=== PATIENT | female | born 2000 | race Hispanic/Latino ===

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

== ENCOUNTER 2023-05-01 21:16 | Emergency (ER) | payer MEDICAID, OTHER ==
[~2023-05-01] VITALS: Ht 154.9 cm; Wt 73.0 kg
[2023-05-01 22:27] LABS: APPEARANCE,URINE CLOUDY (CLEAR); BILIRUBIN,URINE NEGATIVE (NEGATIVE); COLOR,URINE DARK-ORANGE (YELLOW); GLUCOSE, URINE (UA) NEGATIVE (NEGATIVE); KETONES,URINE NEGATIVE (NEGATIVE); LEUKOCYTE ESTERASE ,URINE 250 Leu/uL (NEGATIVE); NITRATE,URINE 1+ (NEGATIVE); PROTEIN,URINE NEGATIVE (NEGATIVE)
[2023-05-01 22:34] LABS: ADD UA MICROSCOPIC YES
[2023-05-01 22:47] LABS: MUCUS,URINE RARE LPF (None Seen); RBC,URINE 0-1 /HPF (0-1); SQUAMOUS EPITHELIAL CELL,UR RARE /HPF (0-2); WBC,URINE 51-100 /HPF (0-1)
[2023-05-01] MEDS ORDERED: CEPH500T PO (23:57)
[2023-05-02 00:18] VITALS: BP 121/70; PULSE 63; RESP 17; O2SAT 98
== END 2023-05-02 00:19 | disposition home or self-care (01) ==
LOC: EDH 21:16
DX: N39.0 Urinary tract infection, site not specified (principal)
CPT/HCPCS: 81001; 81025; 87088

== ENCOUNTER 2023-10-27 21:22 | Emergency (ER) | payer OTHER ==
[~2023-10-27] VITALS: Ht 157.5 cm; Wt 70.3 kg
[~2023-10-27 21:22] MED LIST: CEPH500T PO
[2023-10-27 21:39] LABS: BASOPHILS # (AUTO) 0.03 K/uL (0.00-0.20); BASOPHILS % (AUTO) 0.2 % (0.0-5.0); EOSINOPHILS # (AUTO) 0.21 K/uL (0.00-0.70); EOSINOPHILS % (AUTO) 1.5 % (0.0-8.0); HEMATOCRIT 39.4 % (36-48); IMMATURE GRANULOCYTE ABSOLUTE 0.05 K/uL (0-1); LYMPHOCYTES # (AUTO) 1.6 K/uL (1.0-4.8); LYMPHOCYTES % (AUTO) 11.4 % (21.0-51.0); MEAN CORPUSCULAR HEMOGLOBIN 30.3 pg (27.0-33.0); MEAN CORPUSCULAR HGB CONC 33.5 g/dL (32.0-36.0); MEAN CORPUSCULAR VOLUME 90.6 fL (80-100); MONOCYTES # (AUTO) 0.7 K/uL (0.1-1.0); MONOCYTES % (AUTO) 4.5 % (3.0-13.0); NEUTROPHILS # (AUTO) 11.8 K/uL (1.8-7.7); NEUTROPHILS % (AUTO) 82.1 % (40.0-77.0); PLATELET COUNT (AUTO) 447 K/uL (130-400); RED BLOOD CELL COUNT(AUTO) 4.35 MIL/uL (4.00-5.50); RED CELL DISTRIBUTION WIDTH 13.4 % (11.0-15.5); WHITE BLOOD COUNT (AUTO) 14.4 K/uL (4.8-10.8)
[2023-10-27 21:53] LABS: CREATININE 0.7 mg/dL (0.5-1.0); POTASSIUM 3.5 mmol/L (3.5-5.1)
[2023-10-27 21:58] LABS: ALBUMIN 3.8 g/dL (3.5-5.0); BILIRUBIN,TOTAL 0.8 mg/dL (0.2-1.0); TOTAL PROTEIN, SERUM 7.7 g/dL (6.0-8.3)
[2023-10-28] MEDS: ONDANSETRON 4MG INJ IVP ONE (00:49)
[2023-10-28] MEDS: 0.9%NACL 1000ML 1,000 ML IV ONE (00:49)
[2023-10-28] MEDS: FAMOTIDINE 20MG VIAL IV ONE (00:49)
[2023-10-28 01:00] LABS: APPEARANCE,URINE CLEAR (CLEAR); BILIRUBIN,URINE NEGATIVE (NEGATIVE); COLOR,URINE YELLOW (YELLOW); GLUCOSE, URINE (UA) NEGATIVE (NEGATIVE); KETONES,URINE 5 mg/dL (NEGATIVE); LEUKOCYTE ESTERASE ,URINE 75 Leu/uL (NEGATIVE); NITRATE,URINE NEGATIVE (NEGATIVE); OCCULT BLOOD,URINE LARGE (NEGATIVE); PROTEIN,URINE 20 mg/dL (NEGATIVE); UROBILINOGEN,URINE 0.2 mg/dL (0.2-1.0)
[2023-10-28 01:01] LABS: ADD UA MICROSCOPIC YES
[2023-10-28 01:06] LABS: BACTERIA,URINE FEW /HPF (None Seen); MUCUS,URINE FEW LPF (None Seen); RBC,URINE TNTC /HPF (0-1); SQUAMOUS EPITHELIAL CELL,UR FEW /HPF (0-2)
[2023-10-28 01:22] LABS: RAPID GROUP A STREP negative (NEGATIVE)
[2023-10-28 01:27] LABS: SARS-CoV-2, RNA, NAAT NEGATIVE SARS CoV-2 (NEGATIVE)
[2023-10-28 01:32] LABS: INFLUENZA TYPE A Negative For Type A (NEGATIVE); INFLUENZA TYPE B Negative For Type B (NEGATIVE)
[2023-10-28] MEDS ORDERED: MACR100 PO (01:49)
[2023-10-28] MEDS ORDERED: ONDA-243 PO (01:49)
[2023-10-28 01:54] VITALS: BP 115/78; PULSE 70; RESP 20; O2SAT 100
[2023-10-28] MEDS: CEFTRIAXONE 1G VIAL IVPB ONE (01:56)
== END 2023-10-28 02:00 | disposition home or self-care (01) ==
LOC: EDH 21:22
DX: N39.0 Urinary tract infection, site not specified (principal); Z20.822 Contact with and (suspected) exposure to COVID-19
CPT/HCPCS: 99284; 87635; 80053; 84703; 83690; 85025; 87086; 87880; 87804 ×2; 81001; 36415; 96374; 96375; J3490; J0696; J2405

== ENCOUNTER 2024-05-01 17:40 | Emergency (ER) | payer SELFPAY ==
[~2024-05-01] VITALS: Ht 154.9 cm; Wt 68.0 kg
[~2024-05-01 17:40] MED LIST changes: +MACR100 PO; +ONDA-243 PO
[2024-05-01 18:44] LABS: SARS-CoV-2, RNA, NAAT NEGATIVE SARS CoV-2 (NEGATIVE)
[2024-05-01 18:52] LABS: INFLUENZA TYPE B Negative For Type B (NEGATIVE)
[2024-05-01 19:21] LABS: INFLUENZA TYPE A Positive For Type A (NEGATIVE)
[2024-05-01] MEDS ORDERED: OSEL75 PO (19:24)
--- NOTE | 2024-05-01 19:25 | ERN ---
General Chief Complaint: Flu Symptoms Stated Complaint: HEADACHE,EARACHE,DIZZYNESS Time Seen by MD: 19:18 Time Seen by Midlevel: 19:18 Source: patient History of Present Illness Initial Comments Patient is a 24-year-old female with no significant past medical history presenting to the emergency department with flu-like symptoms that has been ongoing for the last couple of days but worsened today. Symptoms consist of a generalized headache, bilateral ear pain, nasal congestion, and cough. Patient states her 5-year-old kid is sick with similar symptoms and is currently being treated for pneumonia. Denies any other symptoms at this time. Allergies: Coded Allergies: No Known Drug Allergies (Unverified Allergy, Unknown, 12/22/18) Home Meds Active Scripts Amoxicillin/Potassium Clav (Augmentin Xr 1,000-62.5 Tab) 1,000 Mg-62.5 Mg Tab.er.12h, 1 TAB PO TID for 7 Days, #21 TAB 0 Refills with food Prov:WENDY HARDEN 05/01/24 Oseltamivir Phosphate (Tamiflu) 75 Mg Cap, 1 CAP PO BID for 5 Days, #10 CAP 0 Refills Prov:WENDY HARDEN 05/01/24 Ondansetron (Ondansetron Odt) 4 Mg Tab.rapdis, 4 MG PO BID for 7 Days, #14 TAB Prov:WENDY HARDEN 10/28/23 Nitrofurantoin/Nitrofuran Mac (Macrobid) 100 Mg Cap, 100 MG PO BID for 5 Days, #10 CAP Prov:WENDY HARDEN 10/28/23 Cephalexin (Cephalexin) 500 Mg Tablet, 500 MG PO BID for acute uti for 7 Days, #14 TAB Prov:JACKIE BROWN 05/01/23 Past Medical History Past Medical History: No Pertinent History Past Surgical History: Female( History) History: Not Applicable ROS Dictation CONSTITUTIONAL: Negative except for HPI HEAD/FACE: Negative except for HPI EENT: Negative except for HPI RESPIRATORY: Negative except for HPI GASTROINTESTINAL/ABDOMINAL: Negative except for HPI GENITOURINARY: Negative except for HPI MUSCULOSKELETAL: Negative except for HPI INTEGUMENTARY: Negative except for HPI NEUROLOGICAL/PSYCH: Negative except for HPI HEMATOLOGIC/LYMPHATIC: Negative except for HPI All Systems Negative, Except as noted above. 13 point review of systems assessed and all negative except for above. Physical Exam Physical Exam Dictation Vital Signs reviewed General Appearance: Alert, oriented x 3, no acute distress, well developed, nourished. Head and Face: non-traumatic. Eyes: PERRL, pink conjunctivas, eyelid no trauma, anterior chamber with arcus senilis. Ears: Pinnas intact and no signs of trauma or erythema ear canals clear and no discharge TM no erythema Nose: No discharge, no bleeding. Oropharynx: Mouth normal, tongue pink, pharynx clear,no erythema, tonsils no exudates, no abscesses noted, mucous membrane moist Neck: Supple, non-tender, no thyromegaly, no masses, no JVD, no bruits Breast:Deferred Chest:No tenderness, no crepitus, no paradoxical movement, no retractions Lungs wheezing to bilateral lung avalos,, no rhonchi, no stridor, symmetrical breath sounds bilaterally Heart: Regular rate, regular rhythm, no murmur, no gallops Vascular: no peripheral edema, Abdomen: Soft, positive bowel sounds, nondistended, no guarding, nontender, no rebound, no masses no hepatomegaly, no splenomegaly, no Whitfield's sign, no hernias. Rectal: Deferred Genital: Deferred Neurological: Normal speech, motor function intact, sensory function intact Musculoskeletal: Neck nontender, full range of motion, back nontender, full range of motion, Extremities: nontender, full range of motion Skin: Color pink, dry, no turgor, no rash, no lacerations, no abrasions, no contusions. Lymphatic: Deferred Results Laboratory and Microbiology Lab and Micro Result Laboratory Tests Test 05/01/24 18:20 Influenza Type A Antigen Positive For Type A Influenza Type B Antigen Negative For Type B SARS-CoV-2, RNA, NAAT NEGATIVE SARS CoV-2 Labs Reviewed?: Yes MDM MDM: Differential diagnosis: Viral illness, upper respiratory infection, pneumonia There are no social concerns with this patient. Prescription drug management Prescriptions will include: Augmentin, Tamiflu Medical management and examination interpretation discussions were had by me with other qualified healthcare professionals as indicated for the patient's care. ED Course Orders Procedure Category Date Status Time Influenza Type A & B, LAB 05/01/24 Complete Rapid 18:19 Covid Rna Naat LAB 05/01/24 Complete 18:19 Chest 1vw RAD 05/01/24 Taken 18:19 Methylprednisolone PHA 05/01/24 Complete Succ 125mg (Solu-Medr 18:19 Ipratropium/Albuterol PHA 05/01/24 Complete Neb (Duoneb) 18:19 Ceftriaxone 1g Vial PHA 05/01/24 Complete (Rocephine 1g Inj) 20:00 Current Medications Medications (Trade) Dose Ordered Sig/Stephen Route PRN Reason Start Time Stop Time Status Last Admin Dose Admin Albuterol (DUOneb) 1 UDVIAL ONCE STAT IH 05/01/24 18:19 05/01/24 18:20 DC Ceftriaxone Sodium (ROCEphine 1G INJ) 1 gm ONCE ONCE IVPB 05/01/24 20:00 05/01/24 20:01 DC Methylprednisolone Sodium Succinate (Solu-medROL 125MG) 125 mg ONCE STAT IVP 05/01/24 18:19 05/01/24 18:20 DC Vital Signs Date Time Temp Pulse Resp B/P (MAP) Pulse Ox O2 Delivery O2 Flow Rate FiO2 05/01/24 18:16 99.3 88 18 135/84 97 Room Air 0 DX & DISP Disposition: Discharge Departure Impression: Primary Impression: Influenza A Additional Impression: Community acquired pneumonia Condition: Stable Scripts Methylprednisolone (Medrol) 4 Mg Tab.ds.pk 1 TAB PO AD for 6 Days, #21 TAB 0 Refills 6 on day 1 then reduce by one tablet daily until gone Prov: WENDY HARDEN 05/01/24 Amoxicillin/Potassium Clav (Augmentin Xr 1,000-62.5 Tab) 1,000 Mg-62.5 Mg Tab.er.12h 1 TAB PO TID for 7 Days, #21 TAB 0 Refills with food Prov: WENDY HARDEN 05/01/24 Oseltamivir Phosphate (Tamiflu) 75 Mg Cap 1 CAP PO BID for 5 Days, #10 CAP 0 Refills Prov: WENDY HRADEN 05/01/24 Additional Instructions: You have tested positive for influenza A. I have given you a prescription for Tamiflu which should help improve your symptoms over the next couple of days. Follow up with the primary care doctor in 2-3 days for repeat evaluation. Return to the ER if you develop any new or worsening symptoms. Referrals: SELF,REFERRAL (PCP) I have reviewed the case, and I agree with, Diagnosis and Plan I performed the substantive portion of the visit. I have reviewed and personally made and approve the management plan that is documented in the note by myself or the LIZZY. I acknowledge for responsibility for the patient's management plan. WENDY HARDEN May 01, 2024 19:25
[2024-05-01] MEDS ORDERED: AMOX-427 PO (19:51)
--- NOTE | 2024-05-01 20:30 | NUR ---
DISCHARGE DELAYED DUE TO MULTIPLE MEDICATIONS ORDERED AND PENDING
[2024-05-01] MEDS ORDERED: METH4TAB3 PO (20:32)
[2024-05-01 20:36] VITALS: PULSE 72; RESP 20
[2024-05-01] MEDS: IpraTROPium/alBUTERol SULFATE 3 ML SOLUTION IH STA (20:36)
[2024-05-01] MEDS: cefTRIAXone 1G VIAL IVPB ONE (20:36)
[2024-05-01] MEDS: Solu-medROL 125MG VIAL IVP STA (20:37)
--- NOTE | 2024-05-01 20:38 | HMCIMG ---
INDICATION: cough TECHNIQUE: CHEST 1VW COMPARISON: None FINDINGS/IMPRESSION: Prominent bilateral interstitial markings which may represent bronchitis or vascular congestion in the proper clinical setting. Cardiac silhouette is within normal limits. Mild degenerative changes of the spine. The visualized upper abdomen appears unremarkable.
[2024-05-01 20:46] VITALS: BP 108/74; PULSE 102; RESP 18; TEMP 98.9; O2SAT 98
[2024-05-01] MEDS: ondanSETRON 4MG INJ IVP ONE (20:55)
== END 2024-05-01 20:58 | disposition home or self-care (01) ==
LOC: EDH 17:40
DX: J10.00 Influenza due to other identified influenza virus with unspecified type of pneumonia (principal); Z20.822 Contact with and (suspected) exposure to COVID-19; Z79.899 Other long term (current) drug therapy; Z98.890 Other specified postprocedural states
CPT/HCPCS: 99284; 96374; 96375; 71045; 87635; 87804 ×2; 94640; J2919; J0696; J2405

== ENCOUNTER 2024-09-26 20:19 | Emergency (ER) | payer BC ==
[~2024-09-26] VITALS: Ht 157.5 cm; Wt 68.0 kg
[~2024-09-26 20:19] MED LIST changes: +AMOX-427 PO; +METH4TAB3 PO; +OSEL75 PO
--- NOTE | 2024-09-26 20:20 | NUR ---
UA CUP PROVIDED
[2024-09-26] MEDS: ORPHENADRINE 60MG/2ML IM ONE (20:41)
[2024-09-26] MEDS: TRIAMCINOLONE ACETONIDE 40 MG/ML 1ML VIAL IM ONE (20:41)
[2024-09-26 20:47] LABS: BILIRUBIN,URINE NEGATIVE (NEGATIVE); COLOR,URINE LIGHT-YELLOW (YELLOW); GLUCOSE, URINE (UA) NEGATIVE (NEGATIVE); KETONES,URINE NEGATIVE (NEGATIVE); LEUKOCYTE ESTERASE ,URINE NEGATIVE Leu/uL (NEGATIVE); NITRATE,URINE NEGATIVE (NEGATIVE); OCCULT BLOOD,URINE NEGATIVE (NEGATIVE); PH,URINE 7.5 (5.0-8.0); PROTEIN,URINE NEGATIVE (NEGATIVE); UROBILINOGEN,URINE 0.2 mg/dL (0.2-1.0)
[2024-09-26 20:48] LABS: HCG,QUALITATIVE URINE NEGATIVE (NEGATIVE)
[2024-09-26 20:49] LABS: ADD UA MICROSCOPIC NO; APPEARANCE,URINE CLEAR (CLEAR)
--- NOTE | 2024-09-26 21:20 | ERN ---
ED Note History of Present Illness Stated Complaint: LOW BACK PAIN Chief Complaint: Low Back Pain/Injury Time Seen by MD: 20:20 Time Seen by Midlevel: 20:20 Dictation: The Patient is a 24-year-old female with a no significant past medical history who presents to the emergency department with complaints of lower back pain after she bent down to get something onset yesterday. Patient denies any falls or traumas. Denies any urinary or fecal incontinence. Denies any numbness or tingling to lower extremities. Allergies: Coded Allergies: No Known Drug Allergies (Unverified Allergy, Unknown, 12/22/18) Home Meds Active Scripts Lidocaine (Lidocaine) 4 % Adh..patch, 1 PATCH TP DAILY for 10 Days, #10 PATCH 0 Refills Prov:CROW LEE MATERIALS ANALYST 09/26/24 Cyclobenzaprine HCl (Flexeril) 10 Mg Tab, 10 MG PO TID for muscle sstiffness, #14 TAB 0 Refills Prov:CROW LEE MATERIALS ANALYST 09/26/24 Ibuprofen (Ibuprofen) 600 Mg Tablet, 600 MG PO Q6H PRN for PAIN, #30 TAB Prov:CROW LEE MATERIALS ANALYST 09/26/24 Methylprednisolone (Medrol) 4 Mg Tab.ds.pk, 1 TAB PO AD for 6 Days, #21 TAB 0 Refills 6 on day 1 then reduce by one tablet daily until gone Prov:WENDY HARDEN 05/01/24 Amoxicillin/Potassium Clav (Augmentin Xr 1,000-62.5 Tab) 1,000 Mg-62.5 Mg Tab.er.12h, 1 TAB PO TID for 7 Days, #21 TAB 0 Refills with food Prov:WENDY HARDEN 05/01/24 Oseltamivir Phosphate (Tamiflu) 75 Mg Cap, 1 CAP PO BID for 5 Days, #10 CAP 0 Refills Prov:WENDY HARDEN 05/01/24 Ondansetron (Ondansetron Odt) 4 Mg Tab.rapdis, 4 MG PO BID for 7 Days, #14 TAB Prov:WENDY HARDEN 10/28/23 Nitrofurantoin/Nitrofuran Mac (Macrobid) 100 Mg Cap, 100 MG PO BID for 5 Days, #10 CAP Prov:WENDY HARDEN 10/28/23 Cephalexin (Cephalexin) 500 Mg Tablet, 500 MG PO BID for acute uti for 7 Days, #14 TAB Prov:JACKIE BROWN 05/01/23 Past Medical History Past Medical History: No Pertinent History Surgical History: History: Not Applicable RN Note Reviewed/Agreed w/PFSH: Yes Review of System Dictation Constitutional: Negative for fever,chills, and weight loss Eyes: Negative for injury, pain,redness, and discharge ENT: Negative for injury,pain or swelling Cardiovascular: Negative for chest pain, palpitations, and edema Respiratory: Negative for shortness of breath, cough, and wheezing, Abdomen/GI: Negative for abdominal pain, nausea, vomiting, diarrhea, and constipation Back: Positive for low back pain : Negative for injury, bleeding and discharge MS/Extremity: Negative for injury and deformity Skin: Negative for rash, and discoloration Neuro: Negative for headache, weakness, numbness, tingling, and seizure Psych: Negative for suicide ideation, homicidal ideation, and hallucinations Initial Vital Sign VS Vital Signs Date Time Temp Pulse Resp B/P (MAP) Pulse Ox O2 Delivery O2 Flow Rate FiO2 09/26/24 20:20 98.1 74 16 116/79 100 Room Air 09/26/24 21:46 0 21 Physical Exam Dictation Vital Signs reviewed General Appearance: Alert, oriented x 3, no acute distress, well developed, nourished. Head and Face: non-traumatic. Eyes: PERRL, pink conjunctivas, eyelid no trauma, anterior chamber with arcus senilis. Ears: Pinnas intact and no signs of trauma or erythema ear canals clear and no discharge TM no erythema Nose: No discharge, no bleeding. Oropharynx: Mouth normal, tongue pink. pharynx clear,no erythema, tonsils no exudates, no abscesses noted, mucous membrane moist Neck: Supple, non-tender, no thyromegaly, no masses, no JVD, no bruits Breast:Deferred Chest:No tenderness, no crepitus, no paradoxical movement, no retractions Lungs:Clear, well-ventilated, symmetric, no rales, no wheezing, no rhonchi, no stridor, good breath sounds bilaterally Heart: Regular rate, regular rhythm, no murmur, no gallops Vascular: no peripheral edema, dorsalis pedis 3+ Abdomen: Soft, positive bowel sounds, nondistended, no guarding, nontender, no rebound, no masses no hepatomegaly, no splenomegaly, no Whitfield's sign, no hernias. Rectal: Deferred Genital: Deferred Neurological: Normal speech, motor function intact, sensory function intact Musculoskeletal: Neck nontender, full range of motion, back nontender, full range of motion, no deformities.ambulatory Extremities: nontender, full range of motion Skin: Color pink, dry, no turgor, no rash, no lacerations, no abrasions, no contusions. Lymphatic: Deferred Results (Laboratory/Radiology) Laboratory/Radiology Laboratory Tests Test 09/26/24 20:25 Urine Color LIGHT-YELLOW (YELLOW) Urine Appearance CLEAR (CLEAR) Urine pH 7.5 (5.0-8.0) Urine Specific [place] 1.020 (1.001-1.031) Urine Protein NEGATIVE mg/dL (NEGATIVE) Urine Glucose (UA) NEGATIVE mg/dL (NEGATIVE) Urine Ketones NEGATIVE mg/dL (NEGATIVE) Urine Occult Blood NEGATIVE (NEGATIVE) Urine Nitrate NEGATIVE (NEGATIVE) Urine Bilirubin NEGATIVE mg/dL (NEGATIVE) Urine Urobilinogen 0.2 mg/dL (0.2-1.0) Urine Leukocyte Esterase NEGATIVE Heydi/uL Urine HCG, Qualitative NEGATIVE (NEGATIVE) Labs Reviewed?: Yes ED Course ED Course Orders Procedure Category Date Status Time ,Urine Test LAB 09/26/24 Complete 20:22 Urinalysis Profile LAB 09/26/24 Complete 20:22 Orphenadrine Citrate PHA 09/26/24 Complete (Norflex) 20:30 Triamcinolone Acet PHA 09/26/24 Complete 40mg/Ml 1ml (Kenalog 20:30 Current Medications Medications (Trade) Dose Ordered Sig/Stephen Route PRN Reason Start Time Stop Time Status Last Admin Dose Admin Orphenadrine Citrate (Norflex) 60 mg ONCE ONCE IM 09/26/24 20:30 09/26/24 20:32 DC 09/26/24 20:41 Triamcinolone Acetonide (Kenalog 40) 40 mg ONCE ONCE IM 09/26/24 20:30 09/26/24 20:32 DC 09/26/24 20:41 Vital Signs Date Time Temp Pulse Resp B/P (MAP) Pulse Ox O2 Delivery O2 Flow Rate FiO2 09/26/24 21:46 98.4 78 18 118/75 99 Room Air* 0 21 09/26/24 20:20 98.1 74 16 116/79 100 Room Air Medical Decision Making MDM The Patient is a 24-year-old female with a no significant past medical history who presents to the emergency department with complaints of lower back pain after she bent down to get something onset yesterday. Patient denies any falls or traumas. Denies any urinary or fecal incontinence. Denies any numbness or tingling to lower extremities. Urinalysis was unremarkable. exam was negative. Patient with low back pain after bending down. No other trauma. Patient reports feeling better after medication administration. On physical exam patient is in no acute distress, no deformities to back. neurovascularly intact. Patient will be discharged and follow up with PCP. Differential diagnosis: UTI, lumbar strain, muscle spasm Need for hospitalization: Patient does not meet criteria for hospitalization. There are no social concerns with this patient. DX & DISP Disposition: Discharge Departure Impression: Primary Impression: Lumbar strain Condition: Stable Scripts Lidocaine (Lidocaine) 4 % Adh..patch 1 PATCH TP DAILY for 10 Days, #10 PATCH 0 Refills Prov: CROW LEE 09/26/24 Cyclobenzaprine HCl (Flexeril) 10 Mg Tab 10 MG PO TID for muscle sstiffness, #14 TAB 0 Refills Prov: CROW LEE 09/26/24 Ibuprofen (Ibuprofen) 600 Mg Tablet 600 MG PO Q6H PRN for PAIN, #30 TAB Prov: CROW LEE 09/26/24 Additional Instructions: your urinalysis was normal. Your symptoms are related to a lumbar strain. Take your medications as prescribed. If anything worsens please return to ER. FOLLOW-UP WITH PRIMARY CARE PROVIDER IN 1 TO 2 DAYS. TAKE MEDICATIONS DIRECTED HERE IN THE EMERGENCY ROOM. OKAY TO CONTINUE HOME MEDICATIONS UNLESS OTHERWISE DISCUSSED DURING YOUR VISIT IN THE EMERGENCY ROOM TODAY. RETURN TO YOUR NEAREST EMERGENCY ROOM IF SYMPTOMS WORSEN OR IF THERE IS NO IMPROVEMENT. CALL 911 IF YOU NEED IMMEDIATE ASSISTANCE. TAKE TYLENOL [id number] NEEDED AND IF NO CONTRAINDICATIONS ARE PRESENT. INCREASE ORAL HYDRATION. A WOUND CULTURE OR URINE CULTURE WAS ORDERED HERE IN THE EMERGENCY ROOM DEPARTMENT PLEASE FOLLOW-UP WITH PRIMARY CARE PROVIDER AND ADVISE THEM TO GET REPEAT PORTS FROM OUR FACILITY. IF YOU HAD ANY DIVINA WRAP/SPLINTS THAT WERE APPLIED HERE, PLEASE DO NOT REMOVE THEM UNTIL YOU SEE YOUR PRIMARY CARE OR SPECIALTY. Referrals: SELF,REFERRAL (PCP) Time of Disposition: 21:46 I have reviewed the case, and I agree with, Diagnosis and Plan RCOW LEE Sep 26, 2024 21:20 AKILAH LOYOLA DO Sep 27, 2024 04:14
[2024-09-26] MEDS ORDERED: LIDO1ADH82 TP (21:45)
[2024-09-26] MEDS ORDERED: CYCL10TA16 PO (21:45)
[2024-09-26] MEDS ORDERED: IBUP-2070 PO (21:45)
[2024-09-26 21:46] VITALS: BP 118/75; PULSE 78; RESP 18; TEMP 98.5; O2SAT 99
== END 2024-09-26 22:03 | disposition home or self-care (01) ==
LOC: EDH 20:19
DX: S39.012A Strain of muscle, fascia and tendon of lower back, initial encounter (principal); X58.XXXA Exposure to other specified factors, initial encounter; Y93.89 Activity, other specified; Y92.89 Other specified places as the place of occurrence of the external cause; Y99.8 Other external cause status
CPT/HCPCS: 99284; 81003; 81025; 96372 ×2; J3301; J2360